=== PATIENT | male | born 2000 | race Caucasian/White ===

== ENCOUNTER 2025-04-16 20:44 | Emergency (ER) | payer SELFPAY ==
[~2025-04-16] VITALS: Ht 177.8 cm; Wt 86.0 kg
[2025-04-16 20:47] VITALS: O2SAT 96
[2025-04-16] MEDS ORDERED: BACITRACIN ZINC OINT UDPKT TOP ONE (21:45)
[2025-04-16 22:07] LABS: BASOPHILS % 1.1 % (0.0-2.0); EOSINOPHILS % 0.2 % (0.0-5.0); HEMATOCRIT. 43.7 % (42.0-52.0); HEMOGLOBIN. 14.3 g/dL (14.0-18.0); LYMPHOCYTES % 32.8 % (20.0-50.0); MEAN PLATELET VOLUME 8.2 fl (7.4-10.4); MONOCYTES % 10.2 % (2.0-8.0); NEUTROPHILS % 55.7 % (40.0-76.0); PLATELET 227 x1000/uL (130-400); RED BLOOD CELL COUNT 4.44 mill/uL (4.7-6.1); RED CELL DISTRIBUTION WIDTH 14.9 % (11.6-14.6)
[2025-04-16 22:22] LABS: CREATININE 1.1 mg/dL (0.6-1.3); UREA NITROGEN BLOOD 10 mg/dL (9-23)
[2025-04-17] MEDS ORDERED: BO1 TP (00:04)
[2025-04-17] MEDS ORDERED: IBUP-2028 MT (00:04)
[2025-04-17 00:24] VITALS: BP 110/68; PULSE 93; RESP 15; TEMP 36.7; O2SAT 98
== END 2025-04-17 00:31 | disposition home or self-care (01) ==
LOC: ER 20:44
DX: S02.2XXA Fracture of nasal bones, initial encounter for closed fracture (principal); S00.81XA Abrasion of other part of head, initial encounter; F10.129 Alcohol abuse with intoxication, unspecified; F17.200 Nicotine dependence, unspecified, uncomplicated; W18.39XA Other fall on same level, initial encounter; Y93.89 Activity, other specified; Y92.89 Other specified places as the place of occurrence of the external cause; Y99.8 Other external cause status; Y90.8 Blood alcohol level of 240 mg/100 ml or more
CPT/HCPCS: 80048; 80320; 85025; 36415; 70450; 70486; 99284; Z7610; G0480